=== PATIENT | male | born 1995 ===

== ENCOUNTER 2020-10-08 09:23 | Emergency (ER) | payer OTHER, SELFPAY ==
[2020-10-08 09:34] VITALS: BP 147/82; PULSE 94; RESP 18; TEMP 36.8; O2SAT 99; BMI 23.7
--- NOTE | 2020-10-08 10:27 | ED.EXTPRO ---
HPI - Extremity Problem General Chief complaint: Extremity Injury, Upper Stated complaint: shoulder pain Time Seen by Provider: 10/08/20 10:10 Source: patient Mode of arrival: ambulatory Limitations: no limitations History of Present Illness HPI Narrative: 25 y/o male presenting with non-traumatic left anterior shoulder pain for the last 1 week. He states he woke up after sleeping funny with the pain. He states it has been worsening and travels up into the muscles of his neck and upper back by the end of the day. 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 He denies injury, numbness or tingling down his arm, weakness. MD Complaint: extremity pain Onset (ago): day(s) (7) Pain Consistency: intermittent Location: left Severity scale (1-10): 6 Quality: aching Radiation: proximal Relieving factors: nothing Exacerbating factors: range of motion and palpation Associated symptoms: denies other symptoms Related Data Previous Rx's Medication Instructions Recorded cyclobenzaprine 10 mg PO TID PRN #10 tab 10/08/20 ibuprofen 600 mg PO Q8H PRN #20 tab 10/08/20 lidocaine [Lidoderm] 1 patch TOPICAL DAILY #15 ea 10/08/20 Allergies Allergy/AdvReac Type Severity Reaction Status Date / Time No Known Allergies Allergy Unverified 06/29/20 16:21 Review of Systems Review of Systems: Constitutional: No Fever, No Chills Musculoskeletal: + joint pain, + Myalgias Skin: No Skin Lesions, No rash Neuro: No Weakness, No Numbness, No Headache Psych: No Anxiety/Panic, No Depression Heme/Lymph: No Bruising -- PMFSH Past Medical History Attestation statement: The following information was validated with the patient. Social History Social History Advance Directives: No Advance Directives Information Provided: No Physical Exam Vital Signs: Vital Signs: Last Vital Signs Temp 98.2 F 10/08/20 09:34 Pulse 94 10/08/20 09:34 Resp 18 10/08/20 09:34 BP 147/82 H 10/08/20 09:34 Pulse Ox 99 10/08/20 09:34 Body Mass Index 23.7 Appearance: Alert. Oriented X3. No acute distress. HEENT: normal inspection, normal ROM of neck. CVS: Normal heart rate and rhythm. Pulses normal. Respiratory: No respiratory distress. No chest wall tenderness Skin: Skin warm and dry. Normal skin color. Normal skin turgor. No rashes. Extremities: normal left shoulder inspection,left anterior/superior shoulder tenderness with palpable spasm of upper trapezius. normal shoulder ROM. Neuro: Oriented X 3. No motor deficit. No sensory deficit. Course Course Course Narrative: 25 y/o male presenting with non-traumatic left shoulder pain after sleeping awkwardly 1 week ago. Exam and history are consistent with muscle spasm and strain. Will treat accordingly. Patient has been counseled. He is stable for discharge. Discharge Plan Discharge Clinical Impression: Left shoulder strain Qualifiers: Encounter type: initial encounter Qualified Code(s): S46.912A - Strain of unspecified muscle, fascia and tendon at shoulder and upper arm level, left arm, initial encounter Patient Disposition: Home, Self-Care Instructions: Shoulder Pain (ED) Additional Instructions: Rest. Limit lifting >10 lbs. Use ice and/or heat several times per day. Take the prescribed medications as needed for pain. If pain persists despite management we discussed, recommend following up with Orthopedics. If pain worsens or changes, or if you develop any new concerning symptoms come back to the ER for further evaluation. Prescriptions: New cyclobenzaprine 10 mg tablet 10 mg PO TID PRN (Reason: muscle spasm) Qty: 10 RF: 0 lidocaine [Lidoderm] 5 % adhesive patch,medicated 1 patch topical DAILY Qty: 15 RF: 0 ibuprofen 600 mg tablet 600 mg PO Q8H PRN (Reason: pain) Qty: 20 RF: 0 Referrals: Willian Kumar MD [Physician] - 1 week (shoulder pain) Stand Alone Forms: Work/School Release
== END 2020-10-08 10:50 | disposition home or self-care (01) ==
LOC: HO.ED 10:38
PROVIDERS: Emergency Provider Emergency Medicine Emergency Medical Services
DX: S46.912A Strain of unspecified muscle, fascia and tendon at shoulder and upper arm level, left arm, initial encounter (principal); M25.512 Pain in left shoulder; X58.XXXA Exposure to other specified factors, initial encounter; Y93.9 Activity, unspecified; Y92.9 Unspecified place or not applicable; Y99.9 Unspecified external cause status; Z79.899 Other long term (current) drug therapy
CPT/HCPCS: 99283

== ENCOUNTER 2020-11-29 14:40 | Outpatient (REF) | payer OTHER, SELFPAY | END 2020-11-29 14:41 | disposition home or self-care (01) | LOC: HO.LAB 14:40 | PROVIDERS: Visit Provider Nurse Practitioner Family | DX: Z20.822 Contact with and (suspected) exposure to COVID-19 (principal) | CPT/HCPCS: 36415; U0003; U0005 ==

== ENCOUNTER 2021-02-26 02:39 | Emergency (ER) | payer OTHER, SELFPAY ==
--- NOTE | ~2021-02-26 | XR_ITS ---
EXAMINATION: XR CHEST CLINICAL INFORMATION: Shortness of breath COMPARISON: 10/09/2019 TECHNIQUE: Frontal view of the chest was obtained. FINDINGS: The lungs are clear with no focal consolidation. No evidence of pneumothorax, pulmonary edema, or pleural effusions. The cardiomediastinal silhouette is unremarkable. No acute osseous findings. XR/XR chest 1V IMPRESSION: No acute cardiopulmonary findings.
--- NOTE | ~2021-02-26 | CT_ITS ---
EXAMINATION: CT ANGIOGRAM OF THE CHEST WITH AND WITHOUT CONTRAST (CT PULMONARY ANGIOGRAM FOR PE) CLINICAL INFORMATION: Reason for Exam SOB, elevated dimer COMPARISON: None TECHNIQUE: Prior to contrast administration, noncontrast localization images were obtained. Subsequently, multidetector volumetric imaging was performed from the thoracic inlet to below the diaphragms following the administration of 65 mL Omnipaque 350 intravenous contrast. No contrast reaction reported Sagittal, coronal, and MIP oblique sagittal reformatted images were obtained on the CT workstation, uploaded to PACS, and reviewed. This CT examination was performed using dose optimization techniques as appropriate, variously including the following: *Automated exposure control *Adjustment of mA and/or kV according to patient size (this includes techniques or standardized protocols for targeted exams where dose is matched to indication/reason for exam; i.e. extremities or head) *Use of iterative reconstruction technique Total exam dose-length product 288 mGy-cm FINDINGS: QUALITY OF STUDY/CONTRAST BOLUS: Satisfactory. PULMONARY ARTERIES: No central or segmental pulmonary emboli. THORACIC AORTA: No aneurysm or dissection. The left vertebral artery arises directly off the aortic arch, an anatomic variant. LUNG: No regions of consolidation bilaterally. There is a subpleural 3 mm left upper lobe nodule on image [id number]. There is a subpleural 3 mm right upper lobe nodule on image [id number]. PLEURA: No pleural effusion or pneumothorax. MEDIASTINUM: The visualized thyroid gland is unremarkable. Small amount of residual thymic tissue is suspected in the anterior mediastinum. There are subcentimeter mediastinal lymph nodes within the range of normal variation. Cardiac size is within normal limits; no pericardial effusion. No evidence of septal bowing or right heart strain. CHEST WALL/AXILLA: No axillary or internal mammary lymphadenopathy. There is partial visualization of soft tissue gas near the upper right scapula, of uncertain etiology. OSSEOUS STRUCTURES: No acute or suspicious osseous abnormality. UPPER ABDOMEN: Unremarkable. No reflux of contrast into the hepatic veins to suggest elevated right heart pressures. CT/CT angio chest PE protocol IMPRESSION: 1. No pulmonary embolus identified. 2. Tiny bilateral lung nodules, nonspecific and statistically likely benign in the absence of clinical risk factors. 3. Small amount of soft tissue gas near the superior right scapula, of uncertain etiology. It is possible that this is intravascular in the setting of IV line placement. Clinical correlation recommended for any traumatic injury to this region. VTE: negative
[2021-02-26 03:03] VITALS: BP 129/76; PULSE 74; RESP 16; TEMP 37; O2SAT 98; BMI 23.0
--- NOTE | 2021-02-26 03:22 | ECG_ITS ---
Test Reason : SOB Blood Pressure : / mmHG Vent. Rate : 066 BPM Atrial Rate : 066 BPM P-R Int : 130 ms QRS Dur : 082 ms QT Int : 368 ms P-R-T Axes : 042 075 062 degrees QTc Int : 385 ms Normal sinus rhythm Normal ECG No previous ECGs available Referred By: Evi Santos Electronically Signed By:MAAME WATT MD
[2021-02-26 03:36] LABS: MANUAL DIFF FLAG NO
[2021-02-26 03:37] LABS: Basophils Absolute Auto 0.1 X10*3/uL (0.0-0.2); Basophils Percent Auto 0.6 % (0-2); Eosinophils Absolute Auto 0.2 X10*3/uL (0.0-0.4); Eosinophils Percent Auto 1.8 % (0-4); Hematocrit 36.5 % (42-52); Hemoglobin 12.4 g/dl (14.0-18.0); Imm Gran Abs Auto 0.02 X10*3/uL (0.00-0.03); Imm Gran Pct Auto 0.2 % (0.0-0.4); Lymphocytes Absolute Auto 2.8 X10*3/uL (1.2-4.9); Lymphocytes Percent Auto 30.3 % (20-40); Mean Corpuscular Hemoglobin 30.5 pg (27.0-33.0); Mean Corpuscular Volume 89.7 fL (80-98); Mean Platelet Volume 7.8 fL (9.4-12.4); Monocytes Absolute Auto 0.9 X10*3/uL (0.1-1.2); Monocytes Percent Auto 9.9 % (2-11); Neutrophils Absolute Auto 5.3 X10*3/uL (2.0-8.3); Neutrophils Percent Auto 57.2 % (45-73); Platelet Count 304 X10*3/uL (160-400); Red Blood Count 4.07 X10*6/uL (4.60-5.80); Red Cell Distribution Width 12.8 % (11.0-16.0); White Blood Count 9.4 X10*3/uL (4.8-10.8)
--- NOTE | 2021-02-26 03:39 | ED_ITS ---
HPI - SOB/Dyspnea General Chief Complaint: Dyspnea Stated Complaint: SOB Time Seen by Provider: 02/26/21 03:19 Source: patient Mode of arrival: ambulatory Limitations: no limitations History of Present Illness HPI Narrative: Patient comes to emergency room complaining of dyspnea for several hours. Patient states he went to work, felt that he was short of breath. Patient denies history of asthma. Patient states throughout his shift the shortness of breath increased. Patient states that he feels ?he has someth ing in his throat and is unable to cough it up.? Patient denies eating anything that may have made him choke. Related Data Previous Rx's Medication Instructions Recorded cyclobenzaprine 10 mg PO TID PRN #10 tab 10/08/20 ibuprofen 600 mg PO Q8H PRN #20 tab 10/08/20 lidocaine [Lidoderm] 1 patch TOPICAL DAILY #15 ea 10/08/20 Allergies Allergy/AdvReac Type Severity Reaction Status Date / Time No Known Allergies Allergy Unverified 06/29/20 16:21 Review of Systems Review of Systems: Constitutional : No Weight loss, No Fever, No Chills, No Night Sweats, No Fatigue, No Malaise ENT/Mouth : No Hearing loss, No Ear Pain, No Nasal Congestion, No Sinus Pain, No Hoarseness, No sore throat, No Rhinorrhea, No Swallowing Difficulty Eyes: No Eye Pain, No Swelling, No Redness, No Foreign Body, No Discharge, No Vi esteban Changes Cardiovascular : No Chest Pain, complaining of dyspnea No Orthopnea, No Edema, No Palpitations Respiratory : No Cough, No Sputum, No Wheezing, No Smoke Exposure Gastrointestinal : No Nausea, No Vomiting, No Diarrhea, No Constipation, No abdominal Pain, No Hematochezia, No Melena Genitourinary : no irregular bleeding, No Dysuria, No Urinary Frequency, No Hematuria, No Urinary Incontinence, No Urgency, No Flank Pain, No Urinary Flow Changes, No Hesitancy Musculoskeletal : No joint pain, No Myalgias, No Joint Swelling Skin : No Skin Lesions, No rash Neuro : No Weakness, No Numbness, No Paresthesias, No Loss of Consciousness, No Dizziness, No Headache Psych : No Anxiety/Panic, No Depression, No SI/HI/AH/VH, No Social Issues, Heme/Lymph: No Bruising, No Bleeding,No Lymphadenopathy Endocrine : No Polyuria, No Polydipsia, No Temperature Intolerance [facility] Social History Social History Alcohol intake: current Alcohol intake frequency: holidays/special occasions only Smoking Status: Current every day smoker Smoked in Last 30 Days: Yes Use of substances other than those prescribed or required for medical reasons: Yes Substance Use Type: Marijuana Advance Directives: No Advance Directives Information Provided: No Physical Exam Vital Signs: Vital Signs: Last Vital Signs Temp 98.6 F 02/26/21 03:03 Pulse 74 02/26/21 03:03 Resp 16 02/26/21 03:03 BP 129/76 02/26/21 03:03 Pulse Ox 98 02/26/21 03:03 Body Mass Index 23.0 Course Course Course Narrative: I discussed the labs and imaging with the patient, no PE, D- dimer was slightly positive, CT scan for PE negative for PE. I discussed the labs and imaging with the patient. Patient states that he no longer feels short of breath, no chest pain, patient did not receive any treatment. MDM - SOB/Dyspnea Lab Data Result diagrams: 02/26/21 03:32 02/26/21 03:32 Labs: Lab Results 02/26/21 02/26/21 02/26/21 Range/Units 03:32 03:32 03:32 WBC 9.4 (4.8-10.8) X10*3/uL RBC 4.07 L (4.60-5.80) X10*6/uL Hgb 12.4 L (14.0-18.0) g/dl Hct 36.5 L (42-52) % MCV 89.7 (80-98) fL MCH 30.5 (27.0-33.0) pg MCHC 34.0 (31.0-36.0) g/dl RDW 12.8 (11.0-16.0) % Plt Count 304 (160-400) X10*3/uL MPV 7.8 L (9.4-12.4) fL Immature Gran % (Auto) 0.2 (0.0-0.4) % Neut % (Auto) 57.2 (45-73) % Lymph % (Auto) 30.3 (20-40) % [place] % (Auto) 9.9 (2-11) % Eos % (Auto) 1.8 (0-4) % Baso % (Auto) 0.6 (0-2) % Lymph # (Auto) 2.8 (1.2-4.9) X10*3/uL [place] # (Auto) 0.9 (0.1-1.2) X10*3/uL Eos # (Auto) 0.2 (0.0-0.4) X10*3/uL Baso # (Auto) 0.1 (0.0-0.2) X10*3/uL Abs Immat Gran (auto) 0.02 (0.00-0.03) X10*3/uL Absolute Neuts (auto) 5.3 (2.0-8.3) X10*3/uL Absolute Nucleated RBC 0.000 (0.0-0.012) X10*3/uL Nucleated RBC % (auto) 0.0 (0.0-0.2) /100WBC D-Dimer 371 NG/ML Sodium 141 (135-145) mmol/L Potassium 4.5 (3.3-5.1) mmol/L Chloride 106 (96-108) mmol/L Carbon Dioxide 27 (22-29) mmol/L Anion Gap 13 (12-20) BUN 12 (9-16) mg/dL Creatinine 1.12 (0.5-1.4) mg/dL Estim Creat Clear Calc 106.7 Estimated GFR > 60 Random Glucose 83 (60-115) mg/dL Calcium 9.1 (8.4-10.2) mg/dL COVID-19 ([facility]) (Negative) COVID-19 Clin Com 02/26/21 Range/Units 04:21 WBC (4.8-10.8) X10*3/uL RBC (4.60-5.80) X10*6/uL Hgb (14.0-18.0) g/dl Hct (42-52) % MCV (80-98) fL MCH (27.0-33.0) pg MCHC (31.0-36.0) g/dl RDW (11.0-16.0) % Plt Count (160-400) X10*3/uL MPV (9.4-12.4) fL Immature Gran % (Auto) (0.0-0.4) % Neut % (Auto) (45-73) % Lymph % (Auto) (20-40) % [place] % (Auto) (2-11) % Eos % (Auto) (0-4) % Baso % (Auto) (0-2) % Lymph # (Auto) (1.2-4.9) X10*3/uL [place] # (Auto) (0.1-1.2) X10*3/uL Eos # (Auto) (0.0-0.4) X10*3/uL Baso # (Auto) (0.0-0.2) X10*3/uL Abs Immat Gran (auto) (0.00-0.03) X10*3/uL Absolute Neuts (auto) (2.0-8.3) X10*3/uL Absolute Nucleated RBC (0.0-0.012) X10*3/uL Nucleated RBC % (auto) (0.0-0.2) /100WBC D-Dimer NG/ML Sodium (135-145) mmol/L Potassium (3.3-5.1) mmol/L Chloride (96-108) mmol/L Carbon Dioxide (22-29) mmol/L Anion Gap (12-20) BUN (9-16) mg/dL Creatinine (0.5-1.4) mg/dL Estim Creat Clear Calc Estimated GFR Random Glucose (60-115) mg/dL Calcium (8.4-10.2) mg/dL COVID-19 ([facility]) Negative (Negative) COVID-19 Clin Com See Note Imaging Data Chest x-ray: Radiologist's impression: The lungs are clear with no focal consolidation. No evidence of pneumothorax, pulmonary edema, or pleural effusions. The cardiomediastinal silhouette is unremarkable. No acute osseous findings. XR/XR chest 1V IMPRESSION: No acute cardiopulmonary findings. ECG Data Attestation: I personally reviewed and interpreted this ECG as follows: (Sinus rhythm, heart rate 66, no ST segment depression or elevation, no T-wave inversion) Discharge Plan Discharge Clinical Impression: Acute dyspnea Patient Disposition: Home, Self-Care Instructions: Dyspnea (ED) Additional Instructions: Please follow-up with your primary care physician tomorrow. If you have any worsening or new symptoms, please return to the emergency room or call 911 Prescriptions: No Action cyclobenzaprine 10 mg tablet 10 mg PO TID PRN (Reason: muscle spasm) Qty: 10 RF: 0 lidocaine [Lidoderm] 5 % adhesive patch,medicated 1 patch topical DAILY Qty: 15 RF: 0 ibuprofen 600 mg tablet 600 mg PO Q8H PRN (Reason: pain) Qty: 20 RF: 0 Stand Alone Forms: Work/School Release
[2021-02-26 03:52] LABS: D Dimer 371 NG/ML
[2021-02-26 04:00] LABS: Anion Gap 13 (12-20); Blood Urea Nitrogen 12 mg/dL (9-16); Calcium 9.1 mg/dL (8.4-10.2); Carbon Dioxide 27 mmol/L (22-29); Chloride 106 mmol/L (96-108); Creatinine Clr Calc Pharmacy 106.7; Estimated Glomerular Filt Rate > 60; Glucose Random 83 mg/dL (60-115); Potassium 4.5 mmol/L (3.3-5.1); Sodium 141 mmol/L (135-145)
[2021-02-26] MEDS: iohexoL 350 MG/ML 100 ML INFUS..BTL 65 ML IV (04:24)
[2021-02-26 04:45] LABS: COVID-19 Test Negative (Negative); IDNOW Serial# 9DD0AD1C
== END 2021-02-26 05:39 | disposition home or self-care (01) ==
PROVIDERS: Emergency Provider Emergency Medicine
DX: R06.00 Dyspnea, unspecified (principal); Z20.822 Contact with and (suspected) exposure to COVID-19; F17.200 Nicotine dependence, unspecified, uncomplicated; F12.90 Cannabis use, unspecified, uncomplicated
CPT/HCPCS: 36415; 71045; 71275; 80048; 85025; 85379; 87635; 93005; 99284; Q9967

== ENCOUNTER 2021-10-16 05:44 | Emergency (ER) | payer OTHER, SELFPAY ==
--- NOTE | ~2021-10-16 | XR_ITS ---
EXAMINATION: XR CHEST CLINICAL INFORMATION: Dyspnea COMPARISON: None TECHNIQUE: Frontal view of the chest was obtained. FINDINGS: Normal symmetric lung volumes. No parenchymal consolidation. No pleural effusion. No pneumothorax. Cardiomediastinal silhouette and pulmonary vascularity are within normal limits. No acute osseous abnormalities. XR/XR chest 1V IMPRESSION: Unremarkable examination.
[2021-10-16 05:51] VITALS: BP 134/67; PULSE 88; RESP 18; O2SAT 97; BMI 24.4
[2021-10-16] MEDS: Acetaminophen 325 MG TABLET 975 MG PO (05:59)
[2021-10-16 06:19] LABS: COVID-19 Test Positive (Negative)
--- NOTE | 2021-10-16 07:12 | ED.HA ---
HPI - Headache General Chief Complaint: Headache Stated Complaint: body aches/headaches Time Seen by Provider: 10/16/21 07:12 Source: patient Mode of arrival: ambulatory Limitations: no limitations History of Present Illness MD elicited complaint: headache Pertinent past history: other (unvaccinated) Onset (ago): day(s) (1) Onset description: gradually Location: frontal Severity: moderate Quality & Timing: aching Exacerbating factors: none Relieving factors: nothing Associated symptoms: other (myalgias) Treatments prior to arrival: none Related Data Previous Rx's Medication Instructions Recorded cyclobenzaprine 10 mg tablet 10 mg PO TID PRN #10 tab 10/08/20 ibuprofen 600 mg tablet 600 mg PO Q8H PRN #20 tab 10/08/20 lidocaine 5 % topical patch 1 patch TOPICAL DAILY #15 ea 10/08/20 (Lidoderm) Allergies Allergy/AdvReac Type Severity Reaction Status Date / Time No Known Allergies Allergy Verified 10/16/21 05:51 [facility] Past Medical History Medical History (Updated 10/16/21 @ 07:41 by Barb Mendoza DO) No known health problems Social History Social History Alcohol intake: current Alcohol intake frequency: holidays/special occasions only Substance Use Type: Marijuana Advance Directives: No Physical Exam Vital Signs: Vital Signs: Last Vital Signs Pulse 88 10/16/21 05:51 Resp 18 10/16/21 05:51 BP 134/67 10/16/21 05:51 Pulse Ox 97 10/16/21 05:51 BMI result Body Mass Index 24.4 Appearance: Alert. Oriented X3. No acute distress. Eyes: Pupils equal, round and reactive to light. ENT: Pharynx normal. Neck: Normal inspection. Neck supple. no meningeal signs CVS: Normal heart rate and rhythm. Pulses normal. Respiratory: No respiratory distress. Breath sounds normal. Abdomen: Soft and non-tender. Skin: Skin warm and dry. Normal skin color. Normal skin turgor. Extremities: No lower extremity edema. No calf ttp Neuro: Oriented X 3. No motor deficit. No sensory deficit. MDM - Headache MDM Narrative Medical decision making narrative: 26 yo male unvaccinated c/o body aches and headache GCS 15 - no resp issues no hypoxia + COVID given precautions to return Lab Data Labs: Lab Results 10/16/21 Range/Units 05:56 COVID-19 ([facility]) Positive A (Negative) COVID-19 Clin Com See Note Discharge Plan Discharge Clinical Impression: COVID-19 Patient Disposition: Home, Self-Care Instructions: COVID-19 (Coronavirus Disease 2019) (ED) Additional Instructions: return to ED for any worsening symptoms or concerns monitor your breathing if you are so short of breath you cannot walk to your bathroom seek medical care tylenol and motrin for pain Prescriptions: No Action cyclobenzaprine 10 mg tablet 10 mg PO TID PRN (Reason: muscle spasm) Qty: 10 RF: 0 lidocaine [Lidoderm] 5 % adhesive patch,medicated 1 patch topical DAILY Qty: 15 RF: 0 ibuprofen 600 mg tablet 600 mg PO Q8H PRN (Reason: pain) Qty: 20 RF: 0 Stand Alone Forms: Work/School Release
== END 2021-10-16 07:53 | disposition home or self-care (01) ==
PROVIDERS: Emergency Provider Emergency Medicine
DX: U07.1 COVID-19 (principal); R51.9 Headache, unspecified
CPT/HCPCS: 36415; 71045; 87635; 99283

== ENCOUNTER 2021-12-14 08:02 | Emergency (ER) | payer SELFPAY ==
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
[2021-12-14 08:03] VITALS: BP 139/78; PULSE 87; RESP 16; TEMP 36; O2SAT 100; BMI 24.4
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
[2021-12-14] MEDS: Acetaminophen 325 MG TABLET 975 MG PO (08:57)
[2021-12-14] MEDS: Ibuprofen 600 MG TABLET PO (08:57)
== END 2021-12-14 10:13 | disposition home or self-care (01) ==
PROVIDERS: Emergency Provider Emergency Medicine
DX: S40.011A Contusion of right shoulder, initial encounter (principal); M25.511 Pain in right shoulder; M25.551 Pain in right hip; M25.561 Pain in right knee; V43.02XA Car driver injured in collision with other type car in nontraffic accident, initial encounter; Y93.9 Activity, unspecified; Y92.410 Unspecified street and highway as the place of occurrence of the external cause; Y99.9 Unspecified external cause status; Z79.899 Other long term (current) drug therapy
CPT/HCPCS: 73030; 73502; 73562; 99283; 99284

== ENCOUNTER 2022-07-10 01:38 | Emergency (ER) | payer SELFPAY ==
--- NOTE | 2022-07-10 01:52 | PC.NURSE ---
Patient called for triage but has already stepped outside. Will see if patient returns to be seen.
== END 2022-07-10 02:16 | disposition left against medical advice (07) ==
PROVIDERS: Emergency Provider Emergency Medicine
DX: J06.9 Acute upper respiratory infection, unspecified (principal)

== ENCOUNTER 2022-07-10 08:27 | Emergency (ER) | payer SELFPAY ==
--- NOTE | ~2022-07-10 | XR_ITS ---
EXAMINATION: XR CHEST CLINICAL INFORMATION: Cough, shortness of breath COMPARISON: Chest radiographs 10/16/2021, 02/26/2021 TECHNIQUE: Frontal view of the chest was obtained. FINDINGS: The lungs are clear. There is no airspace consolidation or groundglass opacity. No pneumothorax, pleural reaction, or effusion. The heart is normal in size. The vascularity is normal. The costophrenic sulci are clear. Visualized bony structures are unremarkable. XR/XR chest 1V IMPRESSION: Unremarkable examination.
[2022-07-10 09:19] VITALS: BP 119/62; PULSE 84; RESP 18; TEMP 37.5; O2SAT 98; BMI 25.1
[2022-07-10] MEDS: Ibuprofen 600 MG TABLET PO (09:24)
[2022-07-10] MEDS: Ondansetron ODT 4 MG TAB.RAPDIS TRANSLINGU (10:16)
[2022-07-10] MEDS: Butalb/Acetamin/Caff 50/325/40 TABLET 1 TAB PO (10:17)
--- NOTE | 2022-07-10 10:49 | ED_ITS ---
HPI - URI/Sore Throat General Chief Complaint: Upper Respiratory Symptoms Stated Complaint: covid+, headache sweats, body aches Time Seen by Provider: 07/10/22 09:59 Source: patient Mode of arrival: ambulatory History of Present Illness HPI Narrative: 27-year-old male with no significant past medical history presenting to the ED complaining of subjective fever, chills, headache, myalgias/body aches, nausea, vomiting, diaphoresis, cough, mild SOB since yesterday. Admits tested positive on home COVID-19 test this morning. Denies recent travel, ear pain, sore throat, chest pain, abdominal pain, dysuria/hematuria rash MD elicited complaint: cough, rhinorrhea and nasal congestion Onset (ago): day(s) Related Data Previous Rx's Medication Instructions Recorded cyclobenzaprine 10 mg tablet 10 mg PO TID PRN muscle spasm #10 10/08/20 tabs ibuprofen 600 mg tablet 600 mg PO Q8H PRN pain #20 tabs 10/08/20 lidocaine 5 % topical patch 1 patch topical DAILY #15 ea 10/08/20 (Lidoderm) Allergies Allergy/AdvReac Type Severity Reaction Status Date / Time No Known Allergies Allergy Verified 10/16/21 05:51 Review of Systems Review of Systems: Constitutional: +Subj Fever, + Chills, No Night Sweats, + Fatigue, No Malaise ENT/Mouth: No Hearing loss, No Ear Pain, + Nasal Congestion, No Sinus Pain, No Hoarseness, No sore throat, + Rhinorrhea, No Swallowing Difficulty Eyes: No Eye Pain, No Swelling, No Redness, No Vision Changes Cardiovascular: No Chest Pain, + SOB, No Orthopnea, No Edema, No Palpitations Respiratory: + Cough, No Sputum, No Wheezing, No Dyspnea Gastrointestinal: + Nausea (resolved), + Vomiting (resolved), No Diarrhea, No Constipation, No Abdominal pain Genitourinary: No Dysuria, No Urinary Frequency, No Hematuria, No Flank Pain, No Urinary Flow Changes, No Hesitancy Musculoskeletal: No joint pain, + Myalgias, No Joint Swelling Skin: No Skin Lesions, No rash Neuro: No Weakness, No Numbness, No Loss of Consciousness, No Dizziness, + Headache Yes all other systems are reviewed and are negative Constitutional: Constitutional: Reports as per [facility] Past Medical History Attestation statement: The following information was validated with the patient. Medical History No known health problems Social History Social History Alcohol intake: current Alcohol intake frequency: holidays/special occasions only Substance Use Type: Marijuana Advance Directives: No Advance Directives Information Provided: No Physical Exam Vital Signs: Vital Signs: Last Vital Signs Temp 99.5 F 07/10/22 09:19 Pulse 84 07/10/22 09:19 Resp 18 07/10/22 09:19 BP 119/62 07/10/22 09:19 Pulse Ox 98 07/10/22 09:19 O2 Del Method 07/10/22 09:19 BMI result Body Mass Index 25.1 Const: General: cooperative, healthy appearing, comfortable and no acute distress Orientation/consciousness: patient oriented x3 Limitations: no limitations HEENT: Head: Yes normal to inspection and Yes atraumatic Ears: hearing grossly normal bilaterally, external ears normal and TM's normal bilaterally General nose exam: Normal external nose present Face and sinus: Yes normal facial exam Mouth: Normal oral and palatal mucosa present Throat: Yes posterior oropharynx normal, Yes tonsils normal, Yes uvula midline, No uvula laterally displaced and No uvular edema Eyes: General: appearance normal, both eyes and all related structures EOM: EOMs intact bilaterally Neck: Neck: Yes normal visual inspection and Yes no meningeal signs Resp: Effort & Inspection: normal respiratory effort and no respiratory distress Auscultation: clear to auscultation bilaterally, no crackles, no rales and no rhonchi Cardio: Rate: regular rate Heart sounds: S1 normal heart sound present and S2 normal heart sound present GI: Inspection: Yes normal to inspection Palpation (GI): Soft to palpation, nontender, no guarding and not rigid : General: Yes no CVA tenderness Back/Spine/Pelvis: Back: no CVA tenderness Skin: Rashes: no rashes Wounds: no wounds Neuro: General: patient oriented x3, tone normal and no meningeal signs Gait exam (Neuro): Normal gait present Extrem: General: Yes normal to inspection Course Course Course Narrative: XR chest 1V IMPRESSION: Unremarkable examination. ? -COVID-19 positive Results discussed with patient including worrisome signs and symptoms and strict return precautions, and when to return to the emergency department. They verbalized understanding and feel safe for discharge at this time. MDM - URI/Sore Throat MDM Narrative Medical decision making narrative: 27-year-old male with no significant past medical history presenting to the ED complaining of subjective fever, chills, headache, myalgias/body aches, nausea, vomiting, diaphoresis, cough, mild SOB since yesterday. On exam low-grade temperature 99.5 degrees, NAD, nontoxic appearing, lungs CTA. Concern for COVID-19/viral illness. Rule out viral pneumonia very low suspicion for ACS/PE Plan: COVID-19 testing, PO Fioricet, CXR Differential Diagnosis Differential diagnosis: Likely upper respiratory infection, sinusitis, viral infection, bronchitis, influenza and pharyngitis Medical Records Attestation: I reviewed the patient's medical records. Lab Data Attestation: I reviewed the patient's lab results. Labs: Lab Results 07/10/22 Range/Units 11:13 COVID-19 ([facility]) Positive A (Negative) COVID-19 Clin Com See Note Discharge Plan Discharge Clinical Impression: COVID-19 Patient Disposition: Home, Self-Care Instructions: COVID-19 (Coronavirus Disease 2019) (ED) Additional Instructions: At this time you will be okay for discharge. Please self isolate for 5-10 days. Do not expose yourself to others. You may not go to work or school. Please continue to follow cold instructions and wash your hands frequently. You may take Tylenol / Motrin as directed on the bottle for pain or fever. If you have constant or persistent shortness of breath, fever unresolved with medications, chest pain, or your unable to eat or drink please return to the ED CDC Guidelines for home isolation: - Stay away from others - WEAR A MASK if you are sick AND STAY HOME - Cover your mouth and nose with a tissue when you cough or sneeze. Dispose of tissues in a lined trash can and wash your hands immediately with soap and water for at least 20 seconds. If soap and water are not available, clean hands with alcohol-based hand shirring machine operator automatic that contains at least 60% alcohol. - Clean your hands often with soap and water for at least 20 seconds - Avoid touching your eyes, nose and mouth with unwashed hands - Do not share dishes, drinking glasses, cups, eating utensils, towels, or bedding with other people in your home. After using these items, wash them thoroughly with soap and water or put in the dental assisting instructor. - Clean high-touch surfaces in your isolation area ( sick room and bathroom) every day; let a caregiver clean and disinfect high-touch surfaces in other areas of the home. Clean the area or item with soap and water or another detergent if it is dirty. Then, use a household disinfectant. - Limit contact with pets and animals: If you must care for a pet, wash your hands before and after interacting with them) Prescriptions: No Action cyclobenzaprine 10 mg tablet 10 mg PO TID PRN (Reason: muscle spasm) Qty: 10 0RF lidocaine [Lidoderm] 5 % adhesive patch,medicated 1 patch topical DAILY Qty: 15 0RF Rx Instructions: leave on most painful area for up to 12 hrs ibuprofen 600 mg tablet 600 mg PO Q8H PRN (Reason: pain) Qty: 20 0RF Referrals: Physician,None [Primary Care Provider] - 1 week Stand Alone Forms: Work/School Release
[2022-07-10 11:36] LABS: COVID-19 Test Positive (Negative); IDNOW Serial# 55D5AD1C
== END 2022-07-10 11:57 | disposition home or self-care (01) ==
PROVIDERS: Physician Assistant; Emergency Provider Emergency Medicine
DX: U07.1 COVID-19 (principal); R06.02 Shortness of breath
CPT/HCPCS: 71045; 87635; 99283

== ENCOUNTER 2023-01-17 02:43 | Emergency (ER) | payer SELFPAY ==
[2023-01-17 02:45] VITALS: BP 134/88; PULSE 86; RESP 18; TEMP 36.6; O2SAT 97; BMI 25.1
--- NOTE | 2023-01-17 03:10 | PC.NURSE ---
Pt aox3. No apparent distress noted. Breaths are even regular and unlabored. VSS. Reports tooth ache x 2 days and applying orajel with minimal relief. Pain 07/22. Pending physician eval. Will continue to monitor.
[2023-01-17] MEDS: Ibuprofen 600 MG TABLET PO (04:09)
--- NOTE | 2023-01-17 04:14 | PC.NURSE ---
Pt medicated for pain as ordered. Tolerated well.
[2023-01-17 05:06] VITALS: BP 124/66; PULSE 76; RESP 14; TEMP 36.6; O2SAT 98
== END 2023-01-17 05:35 | disposition left against medical advice (07) ==
PROVIDERS: Emergency Provider Emergency Medicine
DX: K08.89 Other specified disorders of teeth and supporting structures (principal)
CPT/HCPCS: 99283

== ENCOUNTER 2023-03-14 06:59 | Emergency (ER) | payer SELFPAY ==
--- NOTE | ~2023-03-14 | XR_ITS ---
EXAMINATION: XR CHEST CLINICAL INFORMATION: Cough. COMPARISON: None available. TECHNIQUE: Frontal view of the chest was obtained. FINDINGS: No significant abnormality is noted involving the heart, lungs, mediastinum, bony thorax or soft tissues. XR/XR chest 1V IMPRESSION: Unremarkable chest examination.
[2023-03-14 07:07] VITALS: BP 126/70; PULSE 102; RESP 20; TEMP 36.6; O2SAT 97; BMI 27.9
--- NOTE | 2023-03-14 07:30 | ED_ITS ---
HPI - General Adult General Chief complaint: Upper Respiratory Symptoms Stated complaint: SOB Time Seen by Provider: 03/14/23 07:10 Source: patient Mode of arrival: ambulatory Limitations: no limitations History of Present Illness HPI narrative: Patient is a 27-year-old male with no past medical history presenting with 2 days of allergy symptoms and shortness of breath while at work early this morning. Patient reports that for the past 2 days he has had mild nasal congestion, sneezing, watery drainage from eyes. He went to work at 3:00 a.m. today and after being at work feel increasingly short of breath. He works at the [employer], denies any exposure to chemicals, etc. He went outside to see if this would relieve his symptoms but it made his symptoms worse. His shortness of breath has somewhat improved since arriving to the ED. He also reports a nonproductive cough. He denies any fevers. He is a smoker. He denies any history of asthma, does not take any daily allergy medications. He denies any chest pain, denies back pain. MD complaint: cough Onset (ago): hour(s) Location: chest Radiation: non-radiation Severity: moderate Treatments prior to arrival: none Related Data Previous Rx's Medication Instructions Recorded cyclobenzaprine 10 mg tablet 10 mg PO TID PRN muscle spasm #10 10/08/20 tabs ibuprofen 600 mg tablet 600 mg PO Q8H PRN pain #20 tabs 10/08/20 lidocaine 5 % topical patch 1 patch topical DAILY #15 ea 10/08/20 (Lidoderm) benzonatate 100 mg capsule 100 mg PO TID PRN cough #20 caps 03/14/23 Allergies Allergy/AdvReac Type Severity Reaction Status Date / Time No Known Allergies Allergy Verified 01/17/23 02:48 Review of Systems Review of Systems: As per HPI. Yes all other systems are reviewed and are negative Constitutional: Constitutional: Reports as per HPI [facility] Past Medical History Medical History No known health problems Social History Social History Alcohol intake: current Alcohol intake frequency: holidays/special occasions only Substance Use Type: Marijuana Advance Directives: No Advance Directives Information Provided: No Physical Exam ED Vital Signs: Vital Signs - 24 hr 03/14/23 07:07 Temperature 97.9 F Pulse Rate 102 H Respiratory Rate 20 Blood Pressure 126/70 Pulse Oximetry 97 Oxygen Delivery Method Room Air BMI result Body Mass Index 27.9 Vital signs have been reviewed and appear to be correct. Blood pressure normal. Heart rate slightly elevated. Respiratory rate normal. Temperature normal. Oxygen saturation normal. Const General: cooperative, healthy appearing and no acute distress Orientation/consciousness: oriented to person, oriented to place, oriented to time and patient oriented x3 Limitations: no limitations HENMT Head: Yes normocephalic and Yes atraumatic Ears: external ears normal General nose exam: Normal external nose present Face and sinus: Yes face symmetric Mouth: oropharynx normal and moist mucous membranes Throat: Yes uvula midline Eyes Pupils: Equal, round and reactive pupils present Neck Neck: Yes normal visual inspection and Yes supple Resp Effort & Inspection: normal respiratory effort and able to speak in complete sentences Auscultation: clear to auscultation bilaterally Cardio Rate: regular rate Rhythm: regular rhythm Heart sounds: S1 normal heart sound present and S2 normal heart sound present GI Palpation (GI): Soft to palpation and nontender Auscultation: normoactive bowel sounds General: Yes no CVA tenderness Back/Spine/Pelvis Back: no CVA tenderness Skin General skin exam: elasticity normal and turgor normal Neuro General: oriented to person, oriented to place, oriented to time, patient oriented x3, moves all extremities, no focal motor deficits and CN's II-XI intact bilaterally Cranial nerves: Yes Equal, round and reactive pupils present Cognition (Neuro): normal cognition Extrem General: Yes full ROM, Yes no pedal edema and Yes no calf tenderness Psych Mental Status: mental status grossly normal Affect: normal affect Thought process: Normal thought process present Medical Decision Making Medical Decision Making [facility] Narrative: Patient is a 27-year-old male with no past medical history presenting with 2 days of allergy symptoms and shortness of breath while at work early this [facility] [employer]. On exam patient is awake, A+Ox3, nontoxic appearing, afebrile, mildly tachycardic, VS otherwise WNL, lungs CTA throughout, no wheezing, rales, or rhonchi. Concern for viral infection such as RSV, influenza, Covid, allergic rhinitis. Less likely bronchitis, pneumonia. Unlikely PE or pneumothorax. Plan: swab for RSV/flu/Covid, CXR 08:40 Covid/flu/RSV negative and CXR unremarkable. Feel symptoms likely viral and patient is stable for discharge home. Advised daily allergy medication. Will prescribe benzonatate as needed for cough. Follow up with PCP. Return precautions discussed at bedside. Differential Diagnosis Differential Diagnoses: The differential diagnosis associated with the presentation includes As above Lab Data MDM Lab Attestation statement: I reviewed the patient's lab results. Labs: Lab Results 03/14/23 Range/Units 07:12 Influenza Type A (PCR) NEGATIVE (Negative) Influenza Type B (PCR) NEGATIVE (Negative) RSV RNA Qual (PCR) NEGATIVE (Negative) SARS-CoV-2 RNA (RT-PCR) NEGATIVE (Negative) Independent Interpretation I performed an independent interpretation of an: Plain X-Ray Interpretation: I independently reviewed the x-ray and agree with the radiologist's interpretation. Radiology Impression Discussion of test interpretation with radiology: I have reviewed the radiologist's reading. Radiologist Impression: FINDINGS: No significant abnormality is noted involving the heart, lungs, mediastinum, bony thorax or soft tissues. XR/XR chest 1V IMPRESSION: Unremarkable chest examination. External Record Review External record reviewed: Inpatient record, Office record and Outpatient record Discharge Plan Discharge Clinical Impression: Viral upper respiratory infection Patient Disposition: Home, Self-Care Instructions: Viral Syndrome (ED) Additional Instructions: You were evaluated in the emergency department today for cough and shortness of breath. Your chest x-ray did not show evidence of a pneumonia. Your cough is most likely due to a viral illness which will improve on its own with rest and fluids. You should begin using a daily allergy medication such as cetirizine or loratadine. You can take mlmi-ncj-[id number] medications such as dextromethorphan to help manage your symptoms. Please schedule an appointment for follow-up with your primary care physician within 2 days. Return to the emergency department if you experience worsening cough, fever 100.4? F or greater, recurrent vomiting, chest pain, shortness of breath, or any other concerning symptoms. Prescriptions: New benzonatate 100 mg capsule 100 mg PO TID PRN (Reason: cough) Qty: 20 0RF No Action cyclobenzaprine 10 mg tablet 10 mg PO TID PRN (Reason: muscle spasm) Qty: 10 0RF lidocaine [Lidoderm] 5 % adhesive patch,medicated 1 patch topical DAILY Qty: 15 0RF Rx Instructions: leave on most painful area for up to 12 hrs ibuprofen 600 mg tablet 600 mg PO Q8H PRN (Reason: pain) Qty: 20 0RF Stand Alone Forms: Work/School Release
[2023-03-14 08:12] LABS: Influenza A PCR NEGATIVE (Negative); Influenza B PCR NEGATIVE (Negative); Resp Syncy Virus RNA Qual PCR NEGATIVE (Negative); SARS COV2 PCR INHOUSE NEGATIVE (Negative)
== END 2023-03-14 09:01 | disposition home or self-care (01) ==
PROVIDERS: Emergency Provider Emergency Medicine
DX: J06.9 Acute upper respiratory infection, unspecified (principal); R06.02 Shortness of breath; Z20.822 Contact with and (suspected) exposure to COVID-19; Z20.828 Contact with and (suspected) exposure to other viral communicable diseases
CPT/HCPCS: 0241U; 71045; 99282; 99283

== ENCOUNTER 2023-11-14 10:32 | Emergency (ER) | payer SELFPAY ==
[2023-11-14 10:34] VITALS: BP 156/82; PULSE 108; RESP 16; TEMP 37.6; BMI 26.5
[2023-11-14 11:50] LABS: COVID-19 Test Negative (Negative); IDNOW Serial# 08D9AD1C
[2023-11-14 11:53] LABS: IDNOW Serial# 152EDE1D; Influenza A Positive (Negative); Influenza B2 Negative (Negative)
--- NOTE | 2023-11-14 12:35 | ED.GENADULT ---
HPI - General Adult General Chief complaint: Headache Stated complaint: headache 5xdays Time Seen by Provider: 11/14/23 11:47 Source: patient Mode of arrival: ambulatory Limitations: no limitations History of Present Illness HPI narrative: 28-year-old male presents to the ED for 5 days of headache and then yesterday started coughing. patient states coworkers were sick. Patient denies any past medical history. Patient states no chest pain or shortness of breath. Related Data Previous Rx's Medication Instructions Recorded cyclobenzaprine 10 mg tablet 10 mg PO TID PRN muscle spasm #10 10/08/20 tabs ibuprofen 600 mg tablet 600 mg PO Q8H PRN pain #20 tabs 10/08/20 lidocaine 5 % topical patch 1 patch topical DAILY #15 ea 10/08/20 (Lidoderm) benzonatate 100 mg capsule 100 mg PO TID PRN cough #20 caps 03/14/23 Allergies Allergy/AdvReac Type Severity Reaction Status Date / Time No Known Allergies Allergy Verified 01/17/23 02:48 Review of Systems Review of Systems: Coughing headache for 5 days Yes all other systems are reviewed and are negative [facility] Past Medical History Medical History No known health problems Social History Social History Alcohol intake: current Alcohol intake frequency: holidays/special occasions only Substance Use Type: Marijuana Advance Directives: No Advance Directives Information Provided: No Physical Exam ED Vital Signs: Vital Signs - 24 hr 11/14/23 10:34 Temperature 99.7 F Pulse Rate 108 H Respiratory Rate 16 Blood Pressure 156/82 H Oxygen Delivery Method Room Air BMI result Body Mass Index 26.5 Const General: cooperative, healthy appearing, comfortable, no acute distress, well developed and alert Orientation/consciousness: oriented to person, oriented to place, oriented to time and patient oriented x3 HENMT Head: Yes normal to inspection, Yes No palpable skull fracture present, Yes normocephalic and Yes atraumatic Throat: Yes posterior oropharynx normal, Yes tonsils normal and Yes uvula midline Eyes General: appearance normal, both eyes and all related structures Neck Neck: Yes normal visual inspection, Yes full ROM, Yes no lymphadenopathy, Yes no meningeal signs, Yes trachea midline, Yes supple, No anterior neck swelling and No tender Chest Chest palpation & inspection: normal inspection of the chest and normal palpation of entire chest wall Resp Effort & Inspection: normal respiratory effort and able to speak in complete sentences Cardio Jugular venous distension: no JVD Heart sounds: S1 normal heart sound present and S2 normal heart sound present GI Inspection: Yes normal to inspection Palpation (GI): Soft to palpation, not firm, nontender, no guarding and not rigid General: No CVA tenderness and Yes no CVA tenderness Back/Spine/Pelvis Back: no CVA tenderness, No CVA tenderness and No back tenderness Skin General skin exam: no rashes or lesions noted, elasticity normal and turgor normal Neuro General: oriented to person, oriented to place, oriented to time, patient oriented x3, gait normal, tone normal, moves all extremities, Normal light touch and pain sensation, no meningeal signs, no focal motor deficits, CN's II-XI intact bilaterally and normal sensation to monofilament Extrem General: Yes normal to inspection, Yes full ROM and Yes capillary refill normal Psych Appearance: grossly normal, well kempt and not disheveled Medical Decision Making Medical Decision Making [facility] Narrative: 28-year-old male presents to ED for URI symptoms. She was positive for flu. Patient well-appearing. Patient has symptoms for 5 days. Patient out of range for Tamiflu. Patient to follow-up with primary care provider. Differential Diagnosis Differential Diagnoses: The differential diagnosis associated with the presentation includes ( COVID, influenza,) Admission/Observation Consideration of admission/observation: Escalation of care including admission/observation considered Lab Data [facility] Lab Attestation statement: I reviewed the patient's lab results. Labs: Lab Results 11/14/23 Range/Units 11:31 COVID-19 ([facility]) Negative (Negative) COVID-19 Clin Com See Note Influenza Type A ([facility]) Positive A (Negative) Influenza Type B ([facility]) Negative (Negative) Influenza A & B Note See Note External Record Review External record reviewed: Other ( prior visits) Discharge Plan Discharge Clinical Impression: Influenza A Patient Disposition: Home, Self-Care Instructions: Influenza (ED) Additional Instructions: your positive for influenza. Recommend rest, oral hydration, and Tylenol/ Motrin for pain/ fever relief. Return to the ED immediately for any chest pain, shortness of breath, abdominal pain, nausea, vomiting, flank pain, coughing up blood, weakness, dizziness, or any other concerning symptoms. Prescriptions: No Action cyclobenzaprine 10 mg tablet 10 mg PO TID PRN (Reason: muscle spasm) Qty: 10 0RF lidocaine [Lidoderm] 5 % adhesive patch,medicated 1 patch topical DAILY Qty: 15 0RF Rx Instructions: leave on most painful area for up to 12 hrs ibuprofen 600 mg tablet 600 mg PO Q8H PRN (Reason: pain) Qty: 20 0RF benzonatate 100 mg capsule 100 mg PO TID PRN (Reason: cough) Qty: 20 0RF Stand Alone Forms: Work/School Release Interventions: ED Discharge Assessment Last Done: 11/14/23 13:04 Discharge Date/Time: 11/14/23 13:05 Print Language: Sinhala
== END 2023-11-14 13:05 | disposition home or self-care (01) ==
PROVIDERS: Physician Assistant Medical; Emergency Provider Emergency Medicine Emergency Medical Services
DX: J10.1 Influenza due to other identified influenza virus with other respiratory manifestations (principal); R51.9 Headache, unspecified; R05.9 Cough, unspecified; Z11.52 Encounter for screening for COVID-19
CPT/HCPCS: 87502; 87635; 99283

== ENCOUNTER 2024-06-03 18:54 | Emergency (ER) | payer SELFPAY ==
[2024-06-03 19:14] VITALS: BP 133/63; PULSE 76; RESP 18; TEMP 36.8; O2SAT 97; BMI 28.6
--- NOTE | 2024-06-03 19:16 | ED_ITS ---
HPI - Extremity Injury (Lower) General Chief Complaint: Extremity Problem Stated Complaint: ? ingrown finger nail Related Data Previous Rx's ?Medication ?Instructions ?Recorded cyclobenzaprine 10 mg tablet 10 mg PO TID PRN muscle spasm #10 10/08/20 tabs ibuprofen 600 mg tablet 600 mg PO Q8H PRN pain #20 tabs 10/08/20 lidocaine 5 % topical patch 1 patch topical DAILY #15 ea 10/08/20 (Lidoderm) benzonatate 100 mg capsule 100 mg PO TID PRN cough #20 caps 03/14/23 Allergies Allergy/AdvReac Type Severity Reaction Status Date / Time No Known Allergies Allergy Verified 06/03/24 19:16 [facility] Past Medical History Medical History No known health problems Social History Social History Alcohol intake: current Alcohol intake frequency: holidays/special occasions only Substance Use Type: Marijuana Advance Directives: No Advance Directives Information Provided: No Do you have a plan to hurt others: No Plan Physical Exam Vital Signs: Vital Signs: Last Vital Signs Temp 98.2 F 06/03/24 19:14 Pulse 76 06/03/24 19:14 Resp 18 06/03/24 19:14 BP 133/63 06/03/24 19:14 Pulse Ox 97 06/03/24 19:14 O2 Del Method Room Air 06/03/24 19:14 BMI result Body Mass Index 28.6 Course Course Course Narrative: This is a Rapid Medical Examination (RME) performed by Watson Kramer PA-C in triage. Full HPI, ROS, assessment and treatment plan per primary provider in the Main ED. 28 yo right hand dominant male here for eval of ingrown fingernail to right third digit x1 week. admits to biting his nails. reports worsening pain extending proximally from fingernail. denies fever/chills. Reevaluation(s) Reevaluation #1: Patient left the emergency department before myself or any of the other clinicians could review or explain physical exam findings, test results, need or lack there of for additional testing, treatment options, or a treatment plan. Discharge Plan Discharge Clinical Impression: Ingrown fingernail Patient Disposition: Left W/O Completing Treatment Prescriptions: No Action cyclobenzaprine 10 mg tablet 10 mg PO TID PRN (Reason: muscle spasm) Qty: 10 0RF lidocaine [Lidoderm] 5 % adhesive patch,medicated 1 patch topical DAILY Qty: 15 0RF Rx Instructions: leave on most painful area for up to 12 hrs ibuprofen 600 mg tablet 600 mg PO Q8H PRN (Reason: pain) Qty: 20 0RF benzonatate 100 mg capsule 100 mg PO TID PRN (Reason: cough) Qty: 20 0RF Discharge Date/Time: 06/04/24 01:30
== END 2024-06-04 01:30 | disposition left against medical advice (07) ==
PROVIDERS: Emergency Provider Emergency Medicine
DX: L60.0 Ingrowing nail (principal); Z53.21 Procedure and treatment not carried out due to patient leaving prior to being seen by health care provider
CPT/HCPCS: 99281

== ENCOUNTER 2024-12-31 10:59 | Outpatient (AMB) | payer OTHER, SELFPAY ==
--- NOTE | 2024-12-31 11:11 | AM.OFFWIN_ITS ---
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 Patient Tobacco Use Status: Never used Tobacco Allergies No Known Allergies Allergy (Verified 12/31/24 11:14) Do you need a note to return to daycare/school/sports/work: Yes HPI HPI Comments History of Present Illness Details History of Present Illness - The patient is a 29-year-old male pres enting with acute abdominal pain and vomiting. 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 - Vomiting initially expelled food, late r episodes included bile with ongoing cramping pain in the stomach. - Constipation was noted with no bowel m ovement this morning, contrasting to a normal movement yesterday afternoon. - The patient has been passing gas - No associated fever, respiratory sympt oms were reported. Physical Exam General: Cooperative, healthy appearing, comfortable, no acute distress and well developed Orientation: Patient oriented x3 Limitations: No limitations Head: Normal to inspection Ears: Hearing grossly normal bilaterally Nose: Normal External nose present Face and sinus: Normal facial exam Eyes: Appearance normal, both eyes and all related structures Neck: Normal visual inspection and Yes full ROM Respiratory: Normal respiratory effort and able to speak in complete sentences. GI: normoactive bs, epigastric ttp, negative mcburneys, negative murphys, negative rovsings, no guarding or rebound Skin: No rashes or lesions noted Neuro: Patient oriented x3 Extremities: Normal to inspection [facility] Medical History No known health problems Social History Alcohol intake: current Alcohol intake frequency: holidays/special occasions only Patient Tobacco Use Status: Never used Tobacco Substance Use Type: Marijuana Review of Systems Const All systems reviewed & are unremarkable except as noted in HPI and below Physical Exam Vital Signs: Last Vital Signs Temp 98.0 F 12/31/24 11:13 Pulse 78 12/31/24 11:13 BP 110/70 12/31/24 11:13 Pulse Ox 98 12/31/24 11:13 Oxygen Delivery Method Room Air 12/31/24 11:13 BMI result Body Mass Index 28.0 Assessment & Plan Assessment & Plan (1) Gastroenteritis: Code(s): K52.9 - Noninfective gastroenteritis and colitis, unspecified Plan: VSS, pt well appearing and PE remarkable for slight TTP epigastric area and very slight tenderness to deep palpation in RLQ. The management plan targets symptom relief and recovery from acute gastroenteritis, presumed to be due to food, based on reported symptoms, with a focus on dietary modifications and pharmacologic support. A liquid diet transitioning to bland foods helps mitigate gastrointestinal symptoms while medications such as omeprazole and Pepto-Bismol provide calming effects on the stomach lining. Zofran was proposed for vomiting relief, with strict recommendations to maintain hydration. Signs suggestive of appendicitis were discussed, with instructions for prompt emergency evaluation if such symptoms develop to prevent complications. The patient was advised on appropriate dietary adjustments and hydration strategies to ensure gradual recovery. Patient was informed and verbally consented to the use of an ambient scribe for clinic note documentation during this visit. Medications: New ondansetron 4 mg PO Q8H PRN 10 tabs 0RF nausea and vomiting Discontinued cyclobenzaprine Discontinued Reason: Patient no longer taking 10 mg PO TID PRN 10 tabs 0RF muscle spasm lidocaine 5% (Lidoderm) leave on most painful area for up to 12 hrs Discontinued Reason: Patient no longer taking 1 patch topical DAILY 15 ea 0RF benzonatate Discontinued Reason: Patient Completed Course 100 mg PO TID PRN 20 caps 0RF cough Coding Level of Care Code New Pt Level 3 (77944) Diagnoses Gastroenteritis K52.9
[2024-12-31 11:13] VITALS: BP 110/70; PULSE 78; TEMP 36.7; O2SAT 98; BMI 28.0
--- OUTSIDE RECORDS SUMMARY | 2024-12-31 13:27 | XMS_ITS | Clinical Summary ---
Author Organization [employer] Address [address] [place] [address] Care Team Providers Care Foreign Language Instructor Name Role Phone Unavailable Primary Care Provider Unavailabl e Allergies No known active allergies Medications No known medications Active Problems Problem Noted Date Diagnosed Date Dental abscess 01/17/2023 Dental caries 01/17/2023 Social History Tobacco Use Types Packs/Day Years Used Date Smoking Tobacco: Former Cigarettes 0.3 0.5 Passive Smoke Exposure: Never Smokeless Tobacco: Former Tobacco Cessation:Counseling Given: No Alcohol Use Standard Drinks/Week Comments Defer 0 (1 standard drink = 0.6 oz pur e alcohol) Sex and Gender Information Value Date Recorded Sex Assigned at Male 01/17/2023 9:56 AM EDT Legal Sex Male 9:52 AM EDT Gender Identity Male 01/17/2023 9:56 AM EDT Sexual Orientation Choose not to disclose 2022 9:56 AM EDT Plan of Treatment Health Maintenance Due Date Last Done Comments Dental Oral Exam 1995 Dental Prophylaxis 1995 Dental X-Ray: Bitewings 1995 Depression Screening 1995 HIV Screening 1995 SDOH Screening 1995 Alcohol/Substance Use Screening 2007 Family Planning (PISQ) 2010 Hepatitis C Screening 2013 DTaP/Tdap/Td Vaccines (1 - Tdap) 2014 Hepatitis B Vaccines (1 of 3 - 19+ 3-dose series) 2014 Tobacco Screening 01/18/2024 01/17/2023 COVID-19 Vaccine (1 - 2023-2 5 season) 2024 Influenza Vaccine (#1) 2024 Dental X-Ray: Full Mouth 01/18/2026 01/17/2023 Zoster Vaccines (1 of 2) 2045 RSV Patients and Pa tients Aged 60 years or older (1 - 1-dose 75+ series) 2070 HIB Vaccines Aged Out No longer eligi ble based on patient's age to complete this topic HPV Vaccines Aged Out No longer eligi ble based on patient's age to complete this topic Hepatitis A Vaccines Aged Out No long er eligible based on patient's age to complete this topic IPV Vaccines Aged Out No longer eligi ble based on patient's age to complete this topic Meningococcal Vaccine Aged Out No deonte melba eligible based on patient's age to complete this topic Pneumococcal Vaccine: Pediat rics (0 to 5 Years) and At-Risk Patients (6 to 49) Years) Aged Out No longer elig ible based on patient's age to complete this topic RSV under 20 months Aged Out No longe r eligible based on patient's age to complete this topic Rotavirus Vaccines Aged Out No longer eligible based on patient's age to complete this topic Procedures Procedure Name Priority Date/Time Associated Diagnosis Comments PANORAMIC RADIOGRAPHIC IMAGE Routine 01/17/2023 1:00 PM EDT from Last 3 Months or Most Recently Relevant to Health Maintenance
== END 2024-12-31 11:32 | disposition home or self-care (01) ==
PROVIDERS: Visit Provider Physician Assistant
DX: K52.9 Noninfective gastroenteritis and colitis, unspecified (principal)

== ENCOUNTER 2025-08-12 18:48 | Emergency (ER) | payer OTHER, SELFPAY ==
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
[2025-08-12 18:56] VITALS: BP 146/76; PULSE 98; O2SAT 100
[2025-08-12 18:59] VITALS: BP 149/84; PULSE 94; TEMP 36.7; O2SAT 99
[2025-08-12 19:10] VITALS: BP 149/84; PULSE 94; RESP 18; TEMP 36.7; O2SAT 99; BMI 30.4
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
--- OUTSIDE RECORDS SUMMARY | 2025-08-12 21:37 | XMS_ITS | Clinical Summary ---
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 Role Phone Unavailable Primary Care Provider [...] 1995 HIV Screening 1995 SDOH Screening 1995 Disability Screening 1995 Alcohol/Substance Use Screening 2007 Family Planning (PISQ) 2010 HPV Vaccines (1 - Male 3-dos e series) 2010 Hepatitis C Screening 2013 DTaP/Tdap/Td Vaccines (1 - Tdap) 2014 Hepatitis B Vaccines (1 of 3 - 19+ 3-dose series) 2014 Tobacco Screening 01/18/2024 01/17/2023 COVID-19 Vaccine (1 - 2023-2 5 season) 2025 Influenza Vaccine (#1) 2025 Dental X-Ray: Full Mouth 01/18/2026 01/17/2023 Zoster [...] patient's age to complete this topic Meningococcal B Vaccine Aged Out No l onger eligible based on patient's age to complete this topic Meningococcal Vaccine Aged Out No deonte melba eligible based on patient's age to complete this topic Pneumococcal Vaccine: Pediat rics (0 to 5 Years) and At-Risk Patients (6 to 49) Years Aged Out No longer eligi ble based [...]
[2025-08-12 22:14] VITALS: BP 146/78; PULSE 78; RESP 18; O2SAT 98
[2025-08-12 22:17] VITALS: BP 146/78; PULSE 78; RESP 18; TEMP 36.7; O2SAT 98
== END 2025-08-12 22:18 | disposition home or self-care (01) ==
PROVIDERS: Emergency Provider Emergency Medicine Emergency Medical Services
DX: S16.1XXA Strain of muscle, fascia and tendon at neck level, initial encounter (principal); R40.2412 Glasgow coma scale score 13-15, at arrival to emergency department; S86.912A Strain of unspecified muscle(s) and tendon(s) at lower leg level, left leg, initial encounter; S40.012A Contusion of left shoulder, initial encounter; S70.02XA Contusion of left hip, initial encounter; S60.221A Contusion of right hand, initial encounter; S70.12XA Contusion of left thigh, initial encounter; V43.52XA Car driver injured in collision with other type car in traffic accident, initial encounter; Y93.89 Activity, other specified; Y92.410 Unspecified street and highway as the place of occurrence of the external cause; Y99.8 Other external cause status
CPT/HCPCS: 72170; 73030; 73060; 73130; 73552; 73590; 99283; 99284

== ENCOUNTER → 2025-08-12 20:16 | Outpatient (BNV) | payer OTHER, SELFPAY | PROVIDERS: Emergency Provider Emergency Medicine Emergency Medical Services; Visit Provider Student in an Organized Health Care Education/Training Program | DX: M25.512 Pain in left shoulder (principal); M79.652 Pain in left thigh; M79.641 Pain in right hand; R10.20 Pelvic and perineal pain unspecified side; M79.622 Pain in left upper arm; M79.662 Pain in left lower leg; V89.2XXA Person injured in unspecified motor-vehicle accident, traffic, initial encounter | CPT/HCPCS: 72170; 73030; 73060; 73130; 73552; 73590 ==